=== PATIENT | male | born 1960 | race Caucasian/White ===

== ENCOUNTER 2024-11-30 10:01 | Emergency (ER) | payer MEDICARE, OTHER, SELFPAY ==
[2024-11-30 10:18] VITALS: BP 120/92
[2024-11-30 10:34] VITALS: BMI 40.5
[2024-11-30] MEDS: ADACEL 0.5 ML IM (10:42)
[2024-11-30] MEDS: KEFLEX 500 MG PO (10:42)
--- NOTE | 2024-11-30 11:00 | ED.GENMED ---
History of Present Illness
General
Chief Complaint: Skin Surface Trauma
Source: patient
Exam Limitations: none
Time Seen by Provider: 11/30/24 10:26
Nursing documentation reviewed up to this point in time: agreed with
History of Present Illness
History of Present Illness:
64-year-old male with past medical history of CHF, a flutter currently on Eliquis presenting to the emergency department today with concerns of a laceration to the left forearm that occurred after getting his arm caught on a jagged piece of metal in
the trash can prior to arrival. Denies numbness weakness bleeding controlled with pressure. Last tetanus shot was 10 years ago
Review of Systems
Review of Systems
Allergies reviewed?: Yes
All Other Systems: ROS reviewed and negative except as documented in HPI and ROS
Phy Exam
Physical Exam
Physical Exam:
GENERAL: Alert , in no apparent distress
EYE: pupils equal and reactive
NECK: Supple, no significant adenopathy.
ENT: o/p clr, mmm.
CARDIAC: Regular rate and rhythm .
LUNGS: Clear breath sounds bilaterally, no acute respiratory distress, no wheezes/rales/rhonchi
ABDOMEN: Soft, without focal tenderness, no r/g, no cvat
NEUROLOGICAL: Alert and oriented, no focal neuro deficits
SKIN: Laceration to the left forearm, 7 cm in total length moderate-sized flap. Warm and dry, skin intact.
MUSCULOSKELETAL: No edema, well perfused.
PSYCH: Normal and appropriate interaction.
Course
Orders/Labs/Results
Orders:
Orders
11/30/24 10:33
Cephalexin Monohydrate [Keflex] 500 mg PO NOW STA
Tetanus/Diphth/Acelpertussis [Adacel] 0.5 ml IM .ONCE ONE
CR Forearm - Left 2 View Urgent
Comment:
Reason For Exam: lac
Vital Signs
Initial and Last Documented VS:
Initial Vital Signs
Temp Pulse Resp BP Pulse Ox
98.4 F 69 18 120/92 99
11/30/24 10:18 11/30/24 10:18 11/30/24 10:18 11/30/24 10:18 11/30/24 10:18
Last Documented Vital Signs
Temp Pulse Resp BP Pulse Ox
97.4 F 66 17 120/80 99
11/30/24 11:35 11/30/24 11:35 11/30/24 11:35 11/30/24 11:35 11/30/24 11:35
Procedures
Laceration Closure
Left Distal Arm:
Status of Wound: clean
Size of Wound in cm: 8
Description of Wound Edges: flap-well vascularized
Preparation: cleaned with saline
Anesthesia: 1% Lidocaine with epi
Revision/Debridement: minor revision and irrigate-direct pressure
Wound exploration: explored to base- no FB and no tendon involvement
Type of Closure: single layer closure and interrupted sutures
Skin Closure Material: 4-0 nylon
Number of sutures: 15
MDM/Problems Addressed
MDM/Problems Addressed:
64-year-old male presenting to the emergency department concerns of a laceration to the left forearm from a piece of metal in the trash can prior to arrival. Patient is on Eliquis. Bleeding controlled with pressure. Given updated tetanus shot
started on antibiotics due to the dirty nature of the wound. Otherwise it was cleaned thoroughly closed with 15 none dissolving stitches advised to keep the area clean covered and will follow-up in 12 to 14 days for suture removal. Return
precautions given.
*Critical Care Note
Total Time (30-74mins, 75-104mins- exclusive of procedures): Not Applicable
ED Attending Note
-
Portions of this chart may have been created with voice recognition software.� Occasional wrong word or��sound alike� substitutions may have occurred due to the inherent limitations of voice recognition software.
Discharge Plan
Departure
Patient Disposition: Home (Routine Discharge)
Date of Disposition: 11/30/24
Time of Disposition: 12:27
Patient with high blood pressure during this ER visit?: No
Condition: Good
Covid-19: Not Applicable
Discharge Problem:
Arm laceration
Instructions: Laceration Repair With Stitches (DC)
Prescriptions:
New
cephalexin 500 mg capsule
500 mg PO TID 3 Days Qty: 9 0RF
Referrals:
Jensen Ware MD [Family Provider] -
Activity Restrictions/Additional Instructions:
You came to the emergency department today with concerns of a laceration. This was cleaned thoroughly and closed with 15 not dissolving stitches. Please keep the area clean covered take the prescribed antibiotics. Please follow-up in 12 to 14
days for suture removal. Return for any worsening, new or concerning symptoms.
Interventions
Interventions:
*Risk Screen - Suicide Last Done: 11/30/24 10:18
*General Assessment Last Done: 11/30/24 10:18
*Neglect/Abuse Screening Last Done: 11/30/24 10:18
*ED- Fall Risk Assessment Last Done: 11/30/24 10:35
*ED COVID-19 Vaccine History Last Done: 11/30/24 10:35
ED-Skin Assessment Last Done: 11/30/24 10:37
Discharge Date and Time
Print Language: OMANI
[2024-11-30 11:35] VITALS: BP 120/80
== END 2024-11-30 12:40 | disposition home or self-care (01) ==
LOC: EMR 10:01
PROVIDERS: EMERGENCY PHYSICIAN Emergency Medicine; FAMILY PHYSICIAN Family Medicine
DX: S51.812A Laceration without foreign body of left forearm, initial encounter (principal); W45.8XXA Other foreign body or object entering through skin, initial encounter; Z23 Encounter for immunization; I50.9 Heart failure, unspecified; Z79.01 Long term (current) use of anticoagulants
CPT/HCPCS: 99283; 12004; 90471; 73090; 90715